=== PATIENT | female | born 1980 | race Caucasian/White ===

== ENCOUNTER → 2016-05-03 | Day surgery (SDC) | payer BC ==
[~2016-05-03] VITALS: Ht 175.3 cm; Wt 56.0 kg
[~2016-05-03] MED LIST: ALEVE220 MG PO; FLONASE 50 MCG/16 GM NOSE; PERCOCET 5-3251 EACH PO; PROBIOTIC1 EAC1 PO
--- NOTE | ~2016-05-03 | OR ---
PATIENT'S NAME: [facility] AGE: 36 Y [address] ROOM: [place] [id number] LOCATION: [facility] [place] ADMIT DATE: 05/03/2016 OR/Procedure Report DISCHARGE DATE: FAMILY PHYSICIAN: Yanet Hayes MD ATTENDING PHYSICIAN: Berta Craft SURGEON: Berta Craft MD ELECTRICITY TRADING ANALYST: None. DATE OF PROCEDURE: 05/03/2016 PREOPERATIVE DIAGNOSIS: Suspected endometrial polyp. POSTOPERATIVE DIAGNOSIS: Endometrial polyp. ANESTHESIA: General endotracheal. BLOOD LOSS: Minimal. PROCEDURE PERFORMED: Hysteroscopy and polyp removal. PROCEDURE IN DETAIL: The patient was taken to the operating room and placed under general endotracheal anesthetic. Her legs were placed in the candy-cane stirrups and she was tipped in Trendelenburg. She was prepped and draped and her bladder was drained. A weighted speculum was placed. The anterior lip of the cervix was grasped with a single-tooth tenaculum. The cervix was sequentially dilated. The scope was placed within the cervix and in the lower part of the uterus. A 1.5% glycine was used as the distention medium. The uterus was distended and a polyp was noted on the posterior wall of the uterus. Using the polyp forceps, I am able to get the polyp out of the uterus in its entirety. The polyp was sent separately to pathology and then endometrial curettings were sent as well. The endometrium looks clear at this time. There was no bleeding. There was a 60 mL deficit. The hysteroscope was removed. The single-tooth tenaculum was removed and all looks good. There was no bleeding from the cervical site. The patient tolerated the procedure well. BERTA CRAFT MD KHP/modl /[id number] d: 05/03/16 1109 t: 05/09/16 1341, OPERATIVE SUMMARY
[2016-05-03 08:07] LABS: BASOPHIL % 0.6 %; EOSINOPHIL % 0.6 %; HEMATOCRIT 40.6 % (33.0-46.0); HEMOGLOBIN 13.3 g/dL (11.0-15.0); LYMPHOCYTE # 2.3 K/uL (0.8-4.0); MCH 30.2 pg (27.0-34.0); MCHC 32.8 gm/dL (32.0-36.5); MCV 92.1 fl (83.0-98.0); MONOCYTE # 0.4 K/uL (0.0-1.0); MONOCYTE % 8.7 %; MPV 10.8 fl (9.4-12.4); NEUTROPHIL # (ANC) 2.1 K/uL (1.8-7.8); NEUTROPHIL % 43.1 %; NRBC % 0 /100WBC (0-0.00); PLATELET COUNT 170 K/uL (150-450); RBC 4.41 M/uL (3.50-5.50); RDW-CV 12.5 % (11.9-14.6); WBC 4.9 K/uL (4.0-11.0)
== END ==
LOC: GPOC 04-28 10:00 → GSDC 07:00
PROVIDERS: Obstetrics & Gynecology
PROC: 0UB98ZZ Excision of Uterus, Via Natural or Artificial Opening Endoscopic (ICD-10-PCS; principal; 2016-05-03)
PROC: 0UDB8ZX Extraction of Endometrium, Via Natural or Artificial Opening Endoscopic, Diagnostic (ICD-10-PCS; 2016-05-03)
DX: N84.0 Polyp of corpus uteri (principal); D25.9 Leiomyoma of uterus, unspecified; N72 Inflammatory disease of cervix uteri; Z88.1 Allergy status to other antibiotic agents; Z79.51 Long term (current) use of inhaled steroids; Z79.899 Other long term (current) drug therapy
CPT/HCPCS: J1100; J1200; J2001; J2405; J7120